=== PATIENT | female | born 1990 | race Caucasian/White ===

== ENCOUNTER 2018-07-21 13:34 | Inpatient (IN) | payer MEDICAID ==
[2018-07-21] MEDS ORDERED: LACTATED RINGER'S 1,000 ML IV (14:35)
[2018-07-21] MEDS ORDERED: CARBOPROST 250 MCG INJ IM ×2 (15:00→22:30)
[2018-07-21] MEDS ORDERED: OXYCODONE/ASPIRIN (4.88/325) TAB PO (15:00)
[2018-07-21] MEDS ORDERED: OXYTOCIN 30 UNITS/LR 500 ML IV (15:00)
[2018-07-21] MEDS ORDERED: MISOPROSTOL 200 MCG TAB PR ×2 (15:00→22:30)
[2018-07-21] MEDS: LACTATED RINGER'S 1,000 ML IV ×2 (15:11→19:06)
[2018-07-21 15:15] LABS: ADD MAN DIFF? NO
[2018-07-21 15:39] LABS: INR 0.87; PROTIME 11.9 Sec (11.9-14.9); PT RATIO 0.9
[2018-07-21 15:40] LABS: PARTIAL THROMBOPLASTIN TIME 30.9 Sec (23.0-35.0)
[2018-07-21] MEDS: OXYTOCIN 30 UNITS/LR 500 ML IV ×4 (16:03→23:33)
[2018-07-21 17:09] LABS: WHITE BLOOD COUNT 9.1 10^3/ul (4.8-10.8)
[2018-07-21 17:09] LABS: BASOPHILS % 0.2 % (0.0-2.0); EOSINOPHILS % 0.4 % (0.0-7.0); HEMATOCRIT 35.5 % (37.0-47.0); HEMOGLOBIN 11.8 g/dl (12.0-16.0); LYMPHOCYTES # 1.8 10^3/ul (0.8-2.9); LYMPHOCYTES % 19.2 % (15.0-51.0); MEAN CORPUSCULAR HEMOGLOBIN 27.7 pg (29.0-33.0); MEAN CORPUSCULAR HGB CONC 33.2 g/dl (32.0-37.0); MEAN CORPUSCULAR VOLUME 83.3 fl (82.0-101.0); MEAN PLATELET VOLUME 9.7 fl (7.4-10.4); MONOCYTE # 0.8 10^3/ul (0.3-0.9); MONOCYTES % 8.4 % (0.0-11.0); NEUTROPHIL # 6.5 10^3/ul (1.6-7.5); NEUTROPHILS % 71.4 % (39.0-77.0); PLATELET COUNT 286 10^3/UL (140-415); RED BLOOD COUNT 4.26 10^6/ul (4.20-5.40); RED CELL DISTRIBUTION WIDTH 14.6 % (11.5-14.5)
[2018-07-21] MEDS: BUTORPHANOL 2 MG INJ IV (18:15)
[2018-07-21] MEDS: LIDOCAINE 1% (MPF) 30 ML INJ INJ (20:02)
[2018-07-21] MEDS: IBUPROFEN 600 MG TAB PO ×2 (20:42→23:20)
[2018-07-21] MEDS: METHYLERGONOVINE 0.2 MG INJ IM (21:48)
[2018-07-21] MEDS ORDERED: HYDROCODONE/APAP (5/325) TAB PO (22:30)
[2018-07-21] MEDS ORDERED: DIBUCAINE 1% 30 GM OINT TOP (22:30)
[2018-07-21] MEDS ORDERED: ACETAMINOPHEN 325 MG TAB PO (22:30)
[2018-07-21] MEDS: BENZOCAINE 20% 56 ML SPRAY TOP (23:34)
[2018-07-21] MEDS: WITCH HAZEL/GLYCERIN PAD PR (23:34)
[2018-07-22] MEDS: LACTATED RINGER'S 1,000 ML IV* ×3 (03:54→14:23)
[2018-07-22] MEDS: IBUPROFEN 600 MG TAB PO ×4 (05:33→23:18)
[2018-07-22] MEDS: METHYLERGONOVINE 0.2 MG INJ IM (05:39)
[2018-07-22 08:36] LABS: ADD MAN DIFF? NO
[2018-07-22 08:40] LABS: WHITE BLOOD COUNT 10.3 10^3/ul (4.8-10.8)
[2018-07-22 08:40] LABS: BASOPHILS % 0.2 % (0.0-2.0); EOSINOPHILS % 0.4 % (0.0-7.0); HEMATOCRIT 33.1 % (37.0-47.0); HEMOGLOBIN 10.9 g/dl (12.0-16.0); LYMPHOCYTES # 1.5 10^3/ul (0.8-2.9); LYMPHOCYTES % 14.1 % (15.0-51.0); MEAN CORPUSCULAR HEMOGLOBIN 27.6 pg (29.0-33.0); MEAN CORPUSCULAR HGB CONC 32.9 g/dl (32.0-37.0); MEAN CORPUSCULAR VOLUME 83.8 fl (82.0-101.0); MEAN PLATELET VOLUME 9.7 fl (7.4-10.4); MONOCYTE # 0.8 10^3/ul (0.3-0.9); MONOCYTES % 7.3 % (0.0-11.0); NEUTROPHILS % 77.4 % (39.0-77.0); PLATELET COUNT 239 10^3/UL (140-415); RED BLOOD COUNT 3.95 10^6/ul (4.20-5.40); RED CELL DISTRIBUTION WIDTH 14.6 % (11.5-14.5)
[2018-07-22] MEDS: SENNA/DOCUSATE NA (8.6MG/50MG) TAB PO ×2 (09:19→21:01)
[2018-07-22 16:44] LABS: RAPID PLASMA REAGIN NONREACTIVE (NR)
[2018-07-23] MEDS: IBUPROFEN 600 MG TAB PO ×2 (05:25→12:11)
[2018-07-23] MEDS: SENNA/DOCUSATE NA (8.6MG/50MG) TAB PO (09:00)
[2018-07-23] MEDS: DIPHTH/TET/ACEL PERTUSS (ADULT) 0.5 ML VIAL IM* (12:20)
== END 2018-07-23 14:35 | disposition home or self-care (01) | DRG 807 ==
LOC: OBT 13:34 → L-D 13:35 → OBT 14:21 → L-D 14:59 → PP1 22:03
PROVIDERS: Obstetrics & Gynecology
PROC: 10E0XZZ Delivery of Products of Conception, External Approach (ICD-10-PCS; principal; 2018-07-21)
PROC: 0KQM0ZZ Repair Perineum Muscle, Open Approach (ICD-10-PCS; 2018-07-21)
DX: O70.1 Second degree perineal laceration during delivery (principal); Z37.0 Single live birth; Z3A.39 39 weeks gestation of pregnancy
CPT/HCPCS: 85025; 85610; 85730; 86592; 86850; 86900; 86901; 90715